=== PATIENT | male | born 1955 | race Caucasian/White ===

== ENCOUNTER 2018-10-06 15:55 | Emergency (ER) | payer MEDICARE, OTHER ==
[~2018-10-06] VITALS: Ht 175.3 cm; Wt 78.1 kg
[2018-10-06 16:30] LABS: BASOPHILS # (AUTO) 0.03 x10^3/uL (0-0.1); BASOPHILS % (AUTO) 0 % (0-1); EOSINOPHILS # (AUTO) 0.07 x10^3/uL (0-0.4); EOSINOPHILS % (AUTO) 1 % (1-7); LYMPHOCYTES # (AUTO) 1.45 x10^3/uL (1-3.4); LYMPHOCYTES % (AUTO) 18 % (22-44); MD NO; MEAN CORPUSCULAR HEMOGLOBIN 30.8 pg (27.5-34.5); MEAN CORPUSCULAR HGB CONC 33.9 g/dL (33.2-36.2); MEAN PLATELET VOLUME 7.5 fL (7.4-10.4); MONOCYTES # (AUTO) 0.62 x10^3/uL (0.2-0.8); MONOCYTES % (AUTO) 8 % (2-9); NEUTROPHILS # (AUTO) 5.75 x10^3/uL (1.8-6.8); NEUTROPHILS % (AUTO) 73 % (42-75); PLATELET COUNT 305 x10^3/uL (130-400); RED BLOOD COUNT 4.91 x10^6/uL (4.38-5.82); RED CELL DISTRIBUTION WIDTH 13.7 % (9.4-14.8)
[2018-10-06 16:40] LABS: ALANINE AMINOTRANSFERASE 19 U/L (12-78); ALBUMIN 4.2 g/dL (3.4-5.0); ANION GAP 8 mmol/L (5-15); CALCIUM 9.4 mg/dL (8.5-10.1); CHLORIDE 107 mmol/L (98-107); CREATININE 0.79 mg/dL (0.7-1.3)
--- NOTE | 2018-10-06 16:42 | NUR ---
Patient transported for CT scan
[2018-10-06 16:43] LABS: ALKALINE PHOSPHATASE 79 U/L (45-117); BILIRUBIN,TOTAL 0.6 mg/dL (0.2-1.0); TOTAL PROTEIN 7.4 g/dL (6.4-8.2)
[2018-10-06 16:45] LABS: SALICYLATE LEVEL < 1.7 mg/dL (2.8-20.0)
[2018-10-06 17:18] LABS: AMPHETAMINE SCREEN, URINE Negative (Negative); BARBITURATE SCREEN, URINE Negative (Negative); BENZODIAZEPINE SCREEN, URINE Negative (Negative); CANNABINOID SCREEN, URINE Positive (Negative); COCAINE SCREEN, URINE Negative (Negative); METHADONE SCREEN, URINE Negative (Negative); OPIATE SCREEN, URINE Negative (Negative)
[2018-10-06] MEDS ORDERED: DIVALPROEX 500 MG TAB.ER.24H ONE ×2 (17:19→17:23)
[2018-10-06] MEDS ORDERED: VALPROIC ACID 250 MG CAPSULE PO ONE (17:30)
--- NOTE | 2018-10-06 17:32 | NUR ---
Order clarification, per Dr. Gould administer depakote extended release 500 mg PO x1 now, verbal order read back and clarified.
[2018-10-06 17:47] VITALS: BP 155/93
--- NOTE | 2018-10-06 18:06 | NUR ---
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
--- NOTE | 2018-10-06 18:30 | NUR ---
Discharge instructions discussed with patient and his family, verbalize understanding. Prescription provided to patient with instruction for use, verbalize understanding. Patient ambulates with steady gait with his family.
== END 2018-10-06 18:35 | disposition home or self-care (01) ==
LOC: ED 18:31
DX: G40.319 Generalized idiopathic epilepsy and epileptic syndromes, intractable, without status epilepticus (principal); R41.0 Disorientation, unspecified; I10 Essential (primary) hypertension; F17.200 Nicotine dependence, unspecified, uncomplicated
CPT/HCPCS: 36415; 70450; 80053; 80307; 82140; 85025; 93005; 99284